=== PATIENT | female | born 1975 | race American Indian/Alaskan Native ===

== ENCOUNTER 2017-06-02 07:45 | Emergency (ER) | payer OTHER, BC ==
[2017-06-02 08:31] VITALS: BP 148/96
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
== END 2017-06-02 09:21 | disposition home or self-care (01) ==
LOC: ED 07:45
DX: S13.4XXA Sprain of ligaments of cervical spine, initial encounter (principal); V89.2XXA Person injured in unspecified motor-vehicle accident, traffic, initial encounter; Y93.89 Activity, other specified; Y92.89 Other specified places as the place of occurrence of the external cause; Y99.8 Other external cause status
CPT/HCPCS: 99282

== ENCOUNTER 2022-05-10 06:42 | Outpatient (CLI) | payer BC ==
--- NOTE | 2022-05-13 16:23 | Mammography Report ---
DIGITAL SCREENING MAMMOGRAM WITH CAD, 05/10/2022 CLINICAL INFORMATION / INDICATION: Routine screening mammography. TECHNIQUE: Digital bilateral 2D mammography was obtained in the craniocaudal and mediolateral oblique projections. This examination was interpreted with the benefit of Computer-Aided Detection analysis. COMPARISON: None currently available. FINDINGS: Breast Density: The breasts are almost entirely fatty. No dominant mass, suspicious calcifications, or architectural distortion in either breast. There are bilateral reduction changes. IMPRESSION: No mammographic evidence of malignancy. Follow up recommendation: Routine yearly screening mammogram. BI-RADS Category 2: BENIGN. A "normal" or negative report should not discourage follow up or biopsy of a clinically significant f inding. A written summary of these findings will be mailed to the patient. The patient will be entered into a mammography reporting system which will generate a reminder letter for the patient's next appointmen t at the appropriate interval. The [employer] recommends yearly mammograms starting at age 40 and continuing as l elvi as a woman is in good health. Breast MRI is recommended for women with an approximate 20-25% or greater lifetime risk of breast cancer, including women with a strong family history of breast or ova randi cancer or who have been treated for Hodgkin's disease. Signer Name: Gregory Garcia MD Signed: 05/13/2022 4:18 PM Workstation Name: [id number]
== END 2022-05-10 06:43 | disposition home or self-care (01) ==
LOC: MAMMO 06:42
PROVIDERS: ATTEND Internal Medicine
DX: Z12.31 Encounter for screening mammogram for malignant neoplasm of breast (principal)
CPT/HCPCS: 77067